=== PATIENT | male | born 1980 | race Caucasian/White ===

== ENCOUNTER 2017-03-15 09:20 | Day surgery (SDC) | payer OTHER ==
[~2017-03-15 09:20] MED LIST: LIDOCAINE W/ SODIUM BICARB 0.5 ML SYR ONE; Lactated Ringers 0 ML PRIMARY IV ONE
[2017-03-15] MEDS ORDERED: Lidocaine Inj 1% 20 ML ONE (09:55)
[2017-03-15] MEDS ORDERED: NEOMYCIN/BACITRACIN/POLYMYXIN 0.9 GM OINT PACKET TOPICAL ONE (10:08)
[2017-03-15] MEDS ORDERED: HYDROcodone-APAP 7.5 MG-325 MG TABLET PO ONE (10:38)
--- NOTE | 2017-03-15 10:40 | GEN.OPNOTE ---
Operative Note Surgery Date: 03/15/17 Preoperative Diagnosis: Desire for sterilization Postoperative Diagnosis: Desire for sterilization Procedure: Bilateral vasectomy Surgeon: Chase Bynum MD Anesthesia Type: Local Estimated Blood Loss (mL): 5 Pathology: Right and left vas deferens sent Indications: Patient is reaches reproductive goals Operative Summary: The patient was brought into the operating room placed in dorsal lithotomy position prepped draped sterile fashion. I identified the vas deferens on the right side initially infiltrate local anesthetic dissect out the vas deferens removed a 1 cm segment tied off the distal end. I sewed the distal cut in back upon itself. I then returned the spermatic cord and its anatomical position closed the skin with 5-0 Vicryl simple sutures. I then identified the vas on the left side infiltrate local anesthetic. Dissect out the vas deferens. There is a couple times a week x-ray dissect out the spermatic artery but the vas deferens was eventually identified and dissected free. Removed a 1 cm segment. I tied off the distal and in a similar fashion Close the skin in a similar fashion. Patient tolerated well no complications. Counts were correct.
[2017-03-15 11:07] VITALS: RESP 14
[2017-03-15 11:13] VITALS: TEMP 97.5
== END 2017-03-15 10:55 | disposition home or self-care (01) ==
LOC: SDSC 09:20
PROVIDERS: ATTEND Surgery
DX: Z30.2 Encounter for sterilization (principal)
CPT/HCPCS: J7120